=== PATIENT | male | born 1970 | race Caucasian/White ===

== ENCOUNTER 2017-04-27 01:47 | Emergency (ER) | payer BC ==
[~2017-04-27] VITALS: Ht 167.6 cm; Wt 94.2 kg
[~2017-04-27 01:47] MED LIST: ENDOCET 5-3251 EACH PO; IBUDONE 5-2001 EACH PO
[2017-04-27 02:17] LABS: HEMATOCRIT 46.4 % (38.0-50.0); MCH 30.7 PG (29.0-34.0); MCHC 34.1 G/DL (30.0-36.0); MCV 90.3 FL (86-99); PLATELET COUNT 287 K/uL (156-360); RBC DIS.WIDTH-CV 12.3 % (11.8-14.6); RBC DIS.WIDTH-SD 41.2 % (39-53); RED BLOOD COUNT 5.14 M/uL (4.00-5.50); WHITE BLOOD COUNT 12.2 K/uL (4.1-10.2)
[2017-04-27 02:29] LABS: CHLORIDE 104 mEq/L (99-109); POTASSIUM 3.6 mEq/L (3.7-5.4); SODIUM 140 mEq/L (136-147)
[2017-04-27 02:31] LABS: GLUCOSE 102 mg/dL (70-99)
[2017-04-27 02:32] LABS: ANION GAP 10 MEQ/L (2-14)
[2017-04-27 02:33] LABS: TOTAL BILIRUBIN 0.3 mg/dL (0.0-1.0)
[2017-04-27 02:34] LABS: ALKALINE PHOSPHATASE 87 IU/L (3-129)
[2017-04-27 02:35] LABS: GFR ESTIMATE (CALCULATED) > 59 mL/min/
[2017-04-27 02:36] LABS: UREA NITROGEN (BUN) 10 mg/dL (9-23)
[2017-04-27 02:38] LABS: LIPASE 180 U/L (1.0-51.0); TROP-I INTERPRETATION NEGATIVE; TROPONIN-I < 0.01 ng/mL (0.0-0.30)
[2017-04-27 03:45] LABS: ADD MIUA? NO; BILIRUBIN NEGATIVE; BLOOD NEGATIVE; COLOR YELLOW ((YELLOW)); GLUCOSE (STRIP) NEGATIVE; KETONES NEGATIVE; LEUKOCYTES NEGATIVE; NITRITE NEGATIVE; PROTEIN (STRIP) NEGATIVE; SPECIFIC GRAVITY 1.009 (1.000-1.030); UCUL ADDED? NO; UROBILINOGEN 0.2 MG/DL (0.2-1.0)
[2017-04-27] MEDS ORDERED: ZOFRAN8 MG PO (04:32)
[2017-04-27] MEDS ORDERED: PERCOCET 5/31 TABLET PO (04:32)
[2017-04-27 05:34] VITALS: BP 123/85
== END 2017-04-27 05:37 | disposition home or self-care (01) ==
LOC: EME 01:47
DX: K85.90 Acute pancreatitis without necrosis or infection, unspecified (principal); Z87.442 Personal history of urinary calculi; F17.200 Nicotine dependence, unspecified, uncomplicated
CPT/HCPCS: 74177; 80053; 81003; 83690; 84484; 85027; 93005; 99281; 99285; J2270; J2405; J7030; S0028

== ENCOUNTER 2018-03-12 10:18 | Emergency (ER) | payer BC ==
[~2018-03-12] VITALS: Ht 177.8 cm; Wt 95.8 kg
[~2018-03-12 10:18] MED LIST changes: +PERCOCET 5/31 TABLET PO; +ZOFRAN8 MG PO
[2018-03-12] MEDS ORDERED: FLEXERIL10 MG PO (15:04)
[2018-03-12] MEDS ORDERED: NAPROXEN500 MG PO (15:04)
[2018-03-12 15:49] VITALS: BP 139/89
== END 2018-03-12 15:50 | disposition home or self-care (01) ==
LOC: EME 10:18
DX: M62.838 Other muscle spasm (principal); M79.661 Pain in right lower leg; R20.0 Anesthesia of skin; F17.200 Nicotine dependence, unspecified, uncomplicated
CPT/HCPCS: 93971; 99281; 99283; J1885